=== PATIENT | female | born 1945 | race Caucasian/White ===

== ENCOUNTER → 2016-06-02 | Outpatient (CLI) | payer MEDICARE | LOC: LAB 07:34 | DX: E11.42 Type 2 diabetes mellitus with diabetic polyneuropathy (principal); E11.69 Type 2 diabetes mellitus with other specified complication; E78.2 Mixed hyperlipidemia; G44.89 Other headache syndrome; G47.09 Other insomnia; I10 Essential (primary) hypertension; J01.00 Acute maxillary sinusitis, unspecified; J30.89 Other allergic rhinitis; M13.161 Monoarthritis, not elsewhere classified, right knee; M13.162 Monoarthritis, not elsewhere classified, left knee; M13.852 Other specified arthritis, left hip; M13.871 Other specified arthritis, right ankle and foot; M13.872 Other specified arthritis, left ankle and foot; M15.8 Other polyosteoarthritis; M21.071 Valgus deformity, not elsewhere classified, right ankle; M21.072 Valgus deformity, not elsewhere classified, left ankle; M54.5 Low back pain; M70.72 Other bursitis of hip, left hip; N20.0 Calculus of kidney; R10.11 Right upper quadrant pain; R10.30 Lower abdominal pain, unspecified; R19.7 Diarrhea, unspecified | CPT/HCPCS: 36415; 80061; 82043; 82570; 83036; 83704 ==

== ENCOUNTER → 2016-10-21 | Outpatient (CLI) | payer MEDICARE | LOC: KOH-I 13:09 | DX: I10 Essential (primary) hypertension (principal) | CPT/HCPCS: 73562 ==

== ENCOUNTER → 2020-03-22 | Outpatient (CLI) | payer MEDICARE | LOC: NM 02-07 14:30 | DX: K20.90 Esophagitis, unspecified without bleeding (principal); R10.11 Right upper quadrant pain; R93.5 Abnormal findings on diagnostic imaging of other abdominal regions, including retroperitoneum | CPT/HCPCS: 78264; A9541 ==

== ENCOUNTER → 2021-03-07 | Outpatient (CLI) | payer MEDICARE ==
[~2021-03-07] MED LIST: CYMBALTA60 MG PO; GLIPIZIDE ER5 MG PO; HYDROCHLOROTH12.5 MG PO; LISINOPRIL40 MG PO; PRAVASTATIN SOD20 MG PO; PROBIOTIC1 EAC2 PO; REMERON15 MG PO; TRANDATE 100 M100 MG PO; ULTRAM50 MG PO; VOLTAREN EC 7575 MG PO
[2021-03-07 11:40] LABS: HEMOGLOBIN 13.2 gm/dl (12.3-15.3); RED BLOOD COUNT 4.82 M/UL (4.00-5.10); WHITE BLOOD COUNT 8.3 K/UL (4.5-11.0)
[2021-03-07 12:03] LABS: BUN/CREATININE RATIO 29 (0-10)
== END ==
LOC: EDSTATUS 10:00 → OPSV2 10:00
PROVIDERS: Orthopaedic Surgery
DX: Z01.818 Encounter for other preprocedural examination (principal); M17.12 Unilateral primary osteoarthritis, left knee; R94.31 Abnormal electrocardiogram [ECG] [EKG]
CPT/HCPCS: 36415; 71046; 80048; 83036; 85027; 93005

== ENCOUNTER → 2021-03-20 | Outpatient (CLI) | payer MEDICARE ==
[~2021-03-20] MED LIST changes: +CYCLOBENZAPRINE10 MG PO; +ENDOCET 7.5-321 EACH PO; +VAZALORE81 MG PO; +ZOFRAN 4 MG TAB4 MG PO
[2021-03-20 12:32] LABS: BUN/CREATININE RATIO 31 (0-10)
== END ==
LOC: LAB 11:38
PROVIDERS: Orthopaedic Surgery
DX: Z01.812 Encounter for preprocedural laboratory examination (principal)
CPT/HCPCS: 36415; 80048; 86850; 86900; 86901

== ENCOUNTER → 2021-03-21 | Day surgery (SDC) | payer MEDICARE ==
[~2021-03-21] VITALS: Ht 170.2 cm; Wt 75.7 kg
== END | disposition home or self-care (01) ==
LOC: OR 08:30 → EDSTATUS 08:45 → OR 08:45
DX: M17.12 Unilateral primary osteoarthritis, left knee (principal); I10 Essential (primary) hypertension; E78.5 Hyperlipidemia, unspecified; E11.9 Type 2 diabetes mellitus without complications; F40.240 Claustrophobia; Z79.84 Long term (current) use of oral hypoglycemic drugs; Z79.82 Long term (current) use of aspirin; Z20.822 Contact with and (suspected) exposure to COVID-19; Z86.718 Personal history of other venous thrombosis and embolism; Z88.0 Allergy status to penicillin; Z88.5 Allergy status to narcotic agent; Z96.651 Presence of right artificial knee joint
CPT/HCPCS: 73560; 82962; 97116; 97161; 97166; C1713; C1776; J0171; J0690; J1100; J2001; J2405; J2704; J2795; J3010; J3370; J7030; J7120